=== PATIENT | male | born 1955 | race Caucasian/White ===

== ENCOUNTER 2020-12-08 22:49 | Emergency (ER) | payer OTHER ==
[2020-12-08 22:55] VITALS: BP 170/76; PULSE 59; RESP 16; TEMP 98.4
[2020-12-08] MEDS ORDERED: AMOXIC-POT CLAV 875MG STARTER PACK 2 TAB BTL PO STA (23:25)
[2020-12-08] MEDS ORDERED: KETOROLAC 15 MG/ML 1 ML VIAL IM STA (23:25)
[2020-12-08] MEDS ORDERED: ACET/COD 300 MG/30 MG STARTER PACK 6 TAB BTL PO STA (23:25)
[2020-12-08] MEDS ORDERED: BUPIVACAINE (PF) 0.5% 30 ML VIAL SQ STA (23:26)
--- NOTE | 2020-12-08 23:29 | ED ---
General Adult HPI - General Chief complaint: ENT Stated complaint: Jaw, Sinus pain Time Seen by Provider: 12/08/20 23:12 Source: patient Mode of arrival: ambulatory Limitations: no limitations - History of Present Illness Initial comments: 65 year-old male patient presents for evaluation right upper dental pain. States that pain is up into his right cheek. Denies any ear pain. Denies any facial swelling. Symptoms started two days ago. States he does have a bad tooth. Denies any fever or chills. Denies trismus or difficulty swallowing. Denies nausea or vomiting. Denies any significant nasal congestion or drainage. - Related Data Home Medications Medication Instructions Recorded Confirmed Gabapentin [Neurontin] 100 mg PO BID 04/07/14 04/07/14 predniSONE [Deltasone] 20 mg PO DAILY 04/07/14 04/07/14 Previous Rx's Medication Instructions Recorded Hydrocodone/Acetaminophen [[place] 1 each PO Q6HR PRN #30 tab 04/07/14 5-325] Amoxic-Pot Clav 875-125Mg 1 tab PO Q12HR #20 tablet 12/08/20 [Augmentin 875-125] Ibuprofen [Motrin] 600 mg PO Q8HR PRN #30 tab 12/08/20 Allergies Allergy/AdvReac Type Severity Reaction Status Date / Time No Known Allergies Allergy Verified 12/08/20 22:55 Review of Systems ROS Statement: Those systems with pertinent positive or pertinent negative responses have been documented in the HPI. ROS Other: All systems not noted in ROS Statement are negative. Past Medical History Past Medical History: No Reported History History of Any Multi-Drug Resistant Organisms: None Reported Past Surgical History: Orthopedic Surgery Additional Past Surgical History / Comment(s): knee miniscus repair Past Psychological History: Anxiety Smoking Status: Never smoker Past Alcohol Use History: Daily Past Drug Use History: None Reported General Exam Limitations: no limitations General appearance: alert, in no apparent distress, other (This is a well- developed, well-nourished adult male patient in no acute distress. Vital signs upon presentation are temperature 98.4F, pulse 59, respirations 16, blood pressure 170/76, pulse ox 98% on room air.) Eye exam: Present: normal appearance, PERRL, EOMI. Absent: scleral icterus, conjunctival injection, periorbital swelling ENT exam: Present: normal oropharynx, mucous membranes moist, other (There is dental caries noted to tooth #3. Gingival erythema hyperplasia noted. No evidence of drainable abscess.) Respiratory exam: Present: normal lung sounds bilaterally. Absent: respiratory distress, wheezes, rales, rhonchi, stridor Cardiovascular Exam: Present: regular rate, normal rhythm, normal heart sounds. Absent: systolic murmur, diastolic murmur, rubs, gallop, clicks Neurological exam: Present: alert, oriented X3, CN II-XII intact Psychiatric exam: Present: normal affect, normal mood Skin exam: Present: warm, dry, intact, normal color. Absent: rash Course Vital Signs 12/08/20 22:51 Temperature 98.4 F Pulse Rate 59 L Respiratory 16 Rate Blood Pressure 170/76 O2 Sat by Pulse 98 Oximetry Procedures - Nerve Block Consent Obtained: verbal consent Local Anesthetic Used: Marcaine 0.5% Amount of anesthesia used: 3 Side: right Intraoral Nerve Block: superior alveolar Procedure Successful: Yes Patient Tolerated Procedure: well, no complications Medical Decision Making - Medical Decision Making 65-year-old male patient presented for evaluation of right upper dental pain. Physical examination did reveal dental caries to tooth #3. Gingival erythema hyperplasia. Possible exposure of the nerve. He said Augmentin. Given pain medication. Did perform superior alveolar nerve block which was successful. He'll be discharged follow-up with the dentist and his primary care physician as soon as possible. Return parameters were discussed in detail. He verbalizes understanding and agrees with this plan. My attending is Dr. Gore. Disposition Clinical Impression: Pain, dental Disposition: HOME SELF-CARE Condition: Good Instructions (If sedation given, give patient instructions): Dental Abscess (ED), Toothache (ED) Additional Instructions: Complete antibiotic prescription and full. Take pain medication as needed for pain control. Follow-up the primary care physician and dentist for recheck as soon as possible. Return for any new, worsening, or concerning symptoms. Prescriptions: Amoxic-Pot Clav 875-125Mg [Augmentin 875-125] 1 tab PO Q12HR #20 tablet Ibuprofen [Motrin] 600 mg PO Q8HR PRN #30 tab PRN Reason: Pain Is patient prescribed a controlled substance at d/c from ED?: No Referrals: Reji Calero MD [Primary Care Provider] - 1-2 days
== END 2020-12-09 00:04 | disposition home or self-care (01) ==
LOC: EC 22:49
DX: K02.9 Dental caries, unspecified (principal)
CPT/HCPCS: 99282; 64400; 96372; J1885